=== PATIENT | female | born 1970 | race Caucasian/White ===

== ENCOUNTER 2024-10-15 21:20 | Emergency (ER) | payer SELFPAY ==
[~2024-10-15] VITALS: Ht 154.9 cm; Wt 59.0 kg
[2024-10-15 21:36] VITALS: O2SAT 98
[2024-10-15] MEDS: LIDOCAINE HCL 1% 20ML VIAL INFIL ONE (21:54)
[2024-10-15 22:48] VITALS: BP 147/86; PULSE 77; RESP 15; TEMP 36.9; O2SAT 98
== END 2024-10-15 22:49 | disposition home or self-care (01) ==
LOC: ER 21:20
DX: S63.252A Unspecified dislocation of right middle finger, initial encounter (principal); W19.XXXA Unspecified fall, initial encounter; Y93.89 Activity, other specified; Y92.89 Other specified places as the place of occurrence of the external cause; Y99.8 Other external cause status
CPT/HCPCS: 73140; 26770; 99152; 99285; J3490; Z7610